=== PATIENT | female | born 1965 | race Caucasian/White ===

== ENCOUNTER 2021-12-02 16:42 | Emergency (ER) | payer OTHER ==
[~2021-12-02] VITALS: Ht 152.4 cm; Wt 63.0 kg
[2021-12-02 17:03] VITALS: BP 112/53
[2021-12-02] MEDS ORDERED: HYDR-4527 PO (20:21)
== END 2021-12-02 20:54 | disposition home or self-care (01) ==
LOC: EMS 16:55
DX: R21 Rash and other nonspecific skin eruption (principal)
CPT/HCPCS: 99281; 99283